=== PATIENT | female | born 1940 | race Caucasian/White ===

== ENCOUNTER → 2019-08-26 | Outpatient (CLI) | payer MEDICARE ==
[~2019-08-26] MED LIST: Cholesterol PO; DIAZ2TAB PO; LEVO100T5 PO; Pt. to Bring List
[2019-08-26 10:18] LABS: BASOPHILS # (AUTO) 0.02 x10^3/uL (0-0.1); BASOPHILS % (AUTO) 0 % (0-1); EOSINOPHILS # (AUTO) 0.04 x10^3/uL (0-0.4); EOSINOPHILS % (AUTO) 1 % (1-7); LYMPHOCYTES # (AUTO) 1.14 x10^3/uL (1-3.4); LYMPHOCYTES % (AUTO) 20 % (22-44); MD NO; MEAN CORPUSCULAR HEMOGLOBIN 35.5 pg (27.0-34.8); MEAN CORPUSCULAR HGB CONC 32.9 g/dL (32.4-35.8); MEAN CORPUSCULAR VOLUME 108.2 fL (80-100); MEAN PLATELET VOLUME 7.1 fL (7.4-10.4); MONOCYTES # (AUTO) 0.39 x10^3/uL (0.2-0.8); MONOCYTES % (AUTO) 7 % (2-9); NEUTROPHILS # (AUTO) 4.16 x10^3/uL (1.8-6.8); NEUTROPHILS % (AUTO) 72 % (42-75); PLATELET COUNT 282 x10^3/uL (130-400); RED BLOOD COUNT 3.94 x10^6/uL (3.82-5.3)
[2019-08-26 10:29] LABS: INTERNATIONAL NORMALIZED RATIO 0.93 (0.93-1.1); PROTHROMBIN TIME 9.8 Seconds (9.6-11.5)
[2019-08-26 10:39] LABS: ALBUMIN 3.6 g/dL (3.4-5.0); ANION GAP 6 mmol/L (5-15); CALCIUM 9.8 mg/dL (8.5-10.1); CHLORIDE 104 mmol/L (98-107)
[2019-08-26 10:42] LABS: ALANINE AMINOTRANSFERASE 22 U/L (12-78); ALKALINE PHOSPHATASE 81 U/L (45-117); BILIRUBIN,TOTAL 0.5 mg/dL (0.2-1.0); TOTAL PROTEIN 7.6 g/dL (6.4-8.2)
== END | disposition home or self-care (01) ==
LOC: STAR 09:20
PROVIDERS: ATTEND Obstetrics & Gynecology
DX: Z01.818 Encounter for other preprocedural examination (principal); C56.9 Malignant neoplasm of unspecified ovary; R18.8 Other ascites; R94.31 Abnormal electrocardiogram [ECG] [EKG]
CPT/HCPCS: 36415; 71046; 80053; 85025; 85610; 85730; 86304; 93005

== ENCOUNTER 2019-08-30 09:02 | Day surgery (SDC) | payer MEDICARE ==
[~2019-08-30] VITALS: Ht 162.6 cm; Wt 64.3 kg
[~2019-08-30 09:02] MED LIST changes: +FENTANYL PF 250 MCG/5ML ONE; +MIDAZOLAM 1 MG/ML, 2ML ONE
[2019-08-30] MEDS ORDERED: GABAPENTIN 300 MG CAPSULE PO ONE (10:00)
[2019-08-30] MEDS ORDERED: LACTATED RINGERS 1,000 ML IV SCH (10:00)
[2019-08-30] MEDS ORDERED: CHLORHEXIDINE 15 ML UDC MM ONE (10:00)
[2019-08-30] MEDS ORDERED: ACETAMINOPHEN 500 MG TABLET PO ONE (10:00)
[2019-08-30] MEDS ORDERED: CEFOTETAN PMX 2GM/50ML 50 ML IV ONE (10:00)
[2019-08-30] MEDS ORDERED: SCOPOLAMINE 1MG PATCH TD SCH (10:00)
[2019-08-30] MEDS ORDERED: POTA10CA PO (10:02)
[2019-08-30] MEDS ORDERED: CLON0.5T20 PO (10:02)
[2019-08-30] MEDS ORDERED: LOVA20TA2 PO (10:07)
[2019-08-30] MEDS ORDERED: LEVO100T5 PO (10:07)
[2019-08-30] MEDS ORDERED: DULO30CA2 PO (10:07)
[2019-08-30] MEDS ORDERED: SENN-190 PO (10:07)
[2019-08-30] MEDS ORDERED: ZOLP5TAB6 PO (10:07)
[2019-08-30] MEDS ORDERED: DIVA250T14 PO (10:07)
[2019-08-30] MEDS ORDERED: MORP30TA81 PO (10:07)
[2019-08-30] MEDS ORDERED: QUET25TA7 PO (10:07)
[2019-08-30 10:10] VITALS: BP 134/78
[2019-08-30] MEDS ORDERED: NEOSTIGMINE 1 MG/ML, 10ML ONE (11:20)
[2019-08-30] MEDS ORDERED: ONDANSETRON 2MG/ML, 2ML ONE ×2 (11:20→14:25)
[2019-08-30] MEDS ORDERED: GLYCOPYRROLATE 0.2MG/1ML, 5ML ONE (11:20)
[2019-08-30] MEDS ORDERED: ROCURONIUM 10MG/ML,5ML ONE (11:20)
[2019-08-30] MEDS ORDERED: DEXAMETHASONE 4 MG/ML, 1ML ONE (11:20)
[2019-08-30] MEDS ORDERED: PROPOFOL 10 MG/ML, 20ML ONE (11:20)
[2019-08-30] MEDS ORDERED: KETOROLAC 30 MG/1 ML ONE (11:20)
[2019-08-30] MEDS ORDERED: LIDOCAINE-MPF 2% ,5ML ONE (11:20)
[2019-08-30] MEDS ORDERED: BUPIVACAINE/PF-EPI 0.25% 1:200K INFIL ONE (12:28)
[2019-08-30] MEDS ORDERED: ONDANSETRON 2MG/ML, 2ML IVPush PRN (14:00)
[2019-08-30] MEDS ORDERED: MEPERIDINE/PF 25MG/0.5ML IVPush PRN (14:00)
[2019-08-30] MEDS ORDERED: DIAZEPAM 5 MG/ML, 2ML IVPush PRN (14:00)
[2019-08-30] MEDS ORDERED: OXYcodone 5 MG/5 ML ORAL.SOL UDC ONE ×2 (14:07→14:22)
[2019-08-30] MEDS ORDERED: FENTANYL PF 100 MCG/2ML ONE (14:07)
[2019-08-30] MEDS: FENTANYL PF 100 MCG/2ML IV PRN ×2 (14:13→14:45)
[2019-08-30] MEDS: OXYcodone 5 MG/5 ML ORAL.SOL UDC PO PRN ×2 (14:14→14:27)
[2019-08-30] MEDS ORDERED: HYDROmorphone 1 MG/ML, 1ML INJ ONE (14:22)
[2019-08-30] MEDS: HYDROmorphone 1 MG/ML, 1ML INJ IVPush PRN ×2 (14:25→15:03)
[2019-08-30] MEDS ORDERED: BUPIVACAINE/PF 0.25% ONE (15:41)
== END 2019-08-30 18:10 | disposition home or self-care (01) ==
LOC: OR 09:02
PROVIDERS: ATTEND Obstetrics & Gynecology
DX: C56.2 Malignant neoplasm of left ovary (principal); Z11.59 Encounter for screening for other viral diseases; C56.1 Malignant neoplasm of right ovary; C48.1 Malignant neoplasm of specified parts of peritoneum; C57.02 Malignant neoplasm of left fallopian tube; C57.01 Malignant neoplasm of right fallopian tube; E78.5 Hyperlipidemia, unspecified; E03.9 Hypothyroidism, unspecified; Z79.899 Other long term (current) drug therapy; Z98.51 Tubal ligation status; Z98.890 Other specified postprocedural states; Z87.891 Personal history of nicotine dependence; Z80.42 Family history of malignant neoplasm of prostate; Z82.49 Family history of ischemic heart disease and other diseases of the circulatory system
CPT/HCPCS: 36415; 49321; 58661; 86850; 86900; 86923; 87635; 88305; 88307; J1100; J1170; J1885; J2250; J2405; J2704; J2710; J3010; J3490; J7120